=== PATIENT | female | born 1960 | race Caucasian/White ===

== ENCOUNTER 2020-10-29 11:00 | Outpatient (RCR) | payer MEDICARE, MEDICAID, SELFPAY ==
[2020-10-05 10:03] VITALS: BP 162/90; PULSE 140; TEMP 36.4; BMI 112.4
[2020-10-05 11:26] VITALS: BP 156/71
--- NOTE | 2020-10-05 13:20 | HP.PCM_ITS ---
(1) Leg swelling Status: Chronic Code(s): M79.89 - Other specified soft tissue disorders (2) Leg edema Status: Chronic Code(s): R60.0 - Localized edema (3) Dependent edema Status: Chronic Code(s): R60.9 - Edema, unspecified (4) Morbid obesity with BMI of 50.0-59.9, adult Status: Chronic Code(s): E66.01 - Morbid (severe) obesity due to excess calories; Z68.43 - Body mass index [BMI] 50.0-59.9, adult (5) Inactivity Status: Chronic Code(s): Z72.3 - Lack of physical exercise (6) Developmental disability Status: Chronic Code(s): F89 - Unspecified disorder of psychological dev elopment (7) Mentally disabled Status: Chronic Code(s): F79 - Unspecified intellectual disabilities (8) Bipolar disorder Status: Chronic Code(s): F31.9 - Bipolar disorder, unspecified (9) Hypertension Status: Chronic Code(s): I10 - Essential (primary) hypertension (10) Diabetes mellitus Status: Chronic Qualifiers: Diabetes mellitus type: type 2 Code(s): E11.9 - Type 2 diabetes mellitus without complications (11) Bilateral leg ulcer Status: Chronic Code(s): L97.919 - Non-pressure chronic ulcer of unspecified part of right lower leg with unspecified severity; L97.929 - Non-pressure chronic ulcer of unspecified part of left lower leg with unspecified severity (12) Chronic venous insufficiency Status: Chronic Code(s): I87.2 - Venous insufficiency (chronic) (peripheral) (13) Degenerative joint disease of knee Status: Chronic Qualifiers: Laterality: bilateral Code(s): M17.10 - Unilateral primary osteoarthritis, unspecified knee (14) GERD (gastroesophageal reflux disease) Status: Chronic Code(s): K21.9 - Gastro-esophageal reflux disease without esophagitis History of Present Illness Date of Service: 10/05/20 Chief Complaint: Bilateral lower extremity swelling, edema, and ulcerations. History of Wound: This is a 60-year-old female with mental disability. She is high functioning and communicative. She lives alone, though has aides who assist her on a daily basis. She was in her normal state of health until approximately 2 months ago. At that time, she began to claim that mice were in her bed while she slept at night. This concerned prompted her to begin sleeping in a recliner, and refusing to sleep in her bed. Furthermore, she is very inactive, spending the predominant portion of her day sitting idlly. Her inactivity is primarily due to degenerative joint disease in her knees. As result, she has developed severe swelling and edema in her lower extremities, as well as large blisters, many of which have ruptured spontaneously. The swelling and edema in the ulcerated blisters have become more severe, prompting the patient and her caregivers to seek medical attention. She presents today with red, swollen, edematous, weeping lower extremities. She has been evaluated by other physicians, as well as in the [facility] Emergency Department. She has been prescribed several different oral antibiotics, the courses of which have been completed. She was evaluated at [facility], where Unna boots were briefly utilized. Past Medical History Past Medical History: Chronic Problems Leg swelling (Chronic) Leg edema (Chronic) Dependent edema (Chronic) Morbid obesity with BMI of 50.0-59.9, adult (Chronic) Inactivity (Chronic) Developmental disability (Chronic) Mentally disabled (Chronic) Bipolar disorder (Chronic) Hypertension (Chronic) Diabetes mellitus (Chronic) Bilateral leg ulcer (Chronic) Chronic venous insufficiency (Chronic) Degenerative joint disease of knee (Chronic) GERD (gastroesophageal reflux disease) (Chronic) Past Medical History: The patient denies a history of myocardial infarction, congestive heart failure, cerebrovascular accident, renal disease, pulmonary disease, hyperlipidemia, and thrombophlebitis. She does have a history of morbid obesity, gastroesophageal reflux disease, degenerative joint disease of the knees, mental disability, bipolar disorder, hypertension, and diabetes mellitus. Surgical History: - - Patient has had tonsillectomy in the past. She is also undergone cholecystectomy. She has had bilateral total knee replacement surgery. Home Medications: Ambulatory Orders Medication Instructions Recorded Acidophilus 16 mg Capsule DAILY 10/05/20 Amitriptyline HCl 10/05/20 Buspar 30 mg PO BID 10/05/20 Cholestyramine Powder 1 packet PO BID 10/05/20 Lasix 20 mg PO DAILY 10/05/20 Melatonin 5 mg Tablet 5 mg PO QHS 10/05/20 Metoprolol Tartrate 50 mg BID 10/05/20 Neurontin 400 mg PO DAILY 10/05/20 Norvasc 5 mg PO DAILY 10/05/20 Norvasc 5 mg PO DAILY 10/05/20 Omeprazole 40 mg DAILY 10/05/20 Pepcid AC 20 mg BID 10/05/20 Provera 10 mg DAILY 10/05/20 Risperidone 2 ml PO BID 10/05/20 Valproic Acid 10 ml PO QHS 10/05/20 Vit D 1.25 mg QWEEK 10/05/20 Vitamin B12 100 mg PO DAILY 10/05/20 - Family History Paternal - - Patient's father at the age of 80 from a gunshot wound. The patient's mother in her 60s with a history of uterine cancer. Lives: Alone - Though has home aides. Smoking Status: Former smoker Tobacco Use: Non-smoker Alcohol: None Drugs: None Review of Systems Constitutional: Reports: - - The patient has high functioning mental disability.. Denies: Chills, Fever, Weight Change Eyes: Denies: Pain, Vision Change HEENT: Denies: Difficulty Hearing, Difficulty Swallowing, Sinus Congestion Cardiovascular: Denies: Chest Pain, Palpitations Respiratory: Denies: Cough, Shortness of Breath Gastrointestinal: Denies: Diarrhea, Nausea, Vomiting Genitourinary: Denies: Dysuria, Hematuria Endocrine: Denies: Heat/ Cold Intolerance, Polydipsia, Polyuria Hematologic/ Lymphatic: Denies: Easy Bruising, Easy Bleeding - Physical Exam Vital Signs Temp Pulse BP 97.6 F L 140 H 156/71 H 10/05/20 10:03 10/05/20 10:03 10/05/20 11:26 General: Alert, Oriented x3, Cooperative, No apparent distress, Well developed, Well nourished, - - The patient is mentally disabled, but high functioning. HEENT: Atraumatic, PERRLA, EOMI, Normocephalic Oral: Moist Mucosa Neck: No JVD Lungs: Normal air movement Abdomen: Non-Distended Extremities: No clubbing, No cyanosis, No Calf Tenderness, - - Severe swelling, edema, and erythema is noted in the lower extremities bilaterally. There are multiple large water blisters, some of which have spontaneously unroofed. Posterior tibial and dorsalis pedis pulses are easily audible by Doppler. Wound Measurements and Assessment WC - Nurse 1 - General Ulcer Measurement Start: 10/05/20 10:02 Freq: Status: Active Protocol: Activity Type Activity Date Activity User E-Sign Co-Sign Detail Recorded Client Recorded Date Recorded By Document 10/05/20 10:03 NEDRA [id number] 10/05/20 10:32 NEDRA 10/05/20 10:03 Wound Center Nurse 1 [Ulcer Assessment] #2 LLE Cluster -Current Size (cm) - Length 34 -Current Size (cm) - Width 29 -Current Size (cm) - Depth 0.1 -Total Square Cm 986 -Exudate Amt Large -Exudate Type Serosanguineous -Wound Margin Distinct, Outline Attached -Granulation Amt Medium (34-66%) -Granulation Quality Red -Necrosis Amt Medium (34-66%) -Necrotic Tissue Type Adherent Slough -Texture (Annmarie-wound Skin Appearance) Assessed, Scarring -Moisture (Annmarie-wound Skin Appearance Assessed, ) Maceration, Weeping -Color (Annmarie-wound Skin Appearance) No Abnormality, Assessed -Temperature (Annmarie-wound Skin No Abnormality Appearance) (Pt Warm) -Tenderness on Palpation (Annmarie-wound No Skin Appearance) -Ulcer Cleansing Rinsed/ Irrigated with Saline -Foul Odor after Cleansing No -Anesthetic Used 4% Lidocaine Solution,5% Lidocaine Gel #1 RLE Cluster -Current Size (cm) - Length 46 -Current Size (cm) - Width 29 -Current Size (cm) - Depth 0.1 -Total Square Cm 1334 -Exudate Amt Large -Exudate Type Serosanguineous -Wound Margin Distinct, Outline Attached -Granulation Amt Medium (34-66%) -Granulation Quality Red -Necrosis Amt Medium (34-66%) -Necrotic Tissue Type Adherent Slough -Texture (Annmarie-wound Skin Appearance) Assessed, Scarring -Moisture (Annmarie-wound Skin Appearance Assessed, ) Maceration, Weeping -Color (Annmarie-wound Skin Appearance) No Abnormality, Assessed -Temperature (Annmarie-wound Skin No Abnormality Appearance) (Pt Warm) -Tenderness on Palpation (Annmarie-wound No Skin Appearance) -Ulcer Cleansing Rinsed/ Irrigated with Saline -Foul Odor after Cleansing No -Anesthetic Used 4% Lidocaine Solution,5% Lidocaine Gel [Edema Assessment] -Right Calf (cm) 45 -Right Ankle (cm) 27 -Left Calf (cm) 45 -Left Ankle (cm) 26 WC - Nurse 3 - General Ulcer D/C NN Start: 10/05/20 10:02 Freq: Status: Active Protocol: Activity Type Activity Date Activity User E-Sign Co-Sign Detail Recorded Client Recorded Date Recorded By Document 10/05/20 11:26 NEDRA [id number] 10/05/20 11:30 KR 10/05/20 11:26 Wound Care Nurse 3 [Wound Dressing] #2 LLE Cluster -Ulcer Cleansing soap annd water -Primary Dressing Applied NonAdherent Contact Layer #1 RLE Cluster -Ulcer Cleansing soap and water -Primary Dressing Applied NonAdherent Contact Layer [Compression Applied] Right -Multi-Layered Wrap Application Multi-Layer Comp - Right ($ ) Left -Multi-Layered Wrap Application Multi-Layer Comp - Left ($) Vital Signs [Blood Pressure] -Blood Pressure (90/60-120/80) 156/71 H -Blood Pressure Mean (mm Hg) 99 -Source Monitor -Position Sitting -Blood Pressure Location Right Arm Pain Scale: 0-10 Numeric [Pain] -Is Patient Pain Free? Yes WC - Visit Discharge [Visit Discharge Information] -Discharge Condition Stable -Ambulatory Status Ambulatory,Cane -Transportation Private Auto -Accompanied by critical care unit nurse Neurological: Cranial nerves II-XII grossly intact, Neuro grossly intact Psych/Mental Status: Normal Affect, Appropriate, Alert and oriented to time, place, person, mood and affect Debridement Note Post-Debridement Measurements/Treatment WC - Nurse 3 - General Ulcer D/C NN Start: 10/05/20 10:02 Freq: Status: Active Protocol: Activity Type Activity Date Activity User E-Sign Co-Sign Detail Recorded Client Recorded Date Recorded By Document 10/05/20 11:26 NEDRA [id number] 10/05/20 11:30 KR 10/05/20 11:26 Wound Care Nurse 3 #2 LLE Cluster -Ulcer Cleansing soap annd water -Primary Dressing Applied NonAdherent Contact Layer #1 RLE Cluster -Ulcer Cleansing soap and water -Primary Dressing Applied NonAdherent Contact Layer Right -Multi-Layered Wrap Application Multi-Layer Comp - Right ($ ) Left -Multi-Layered Wrap Application Multi-Layer Comp - Left ($) Vital Signs Blood Pressure (90/60-120/80) 156/71 H Blood Pressure Mean (mm Hg) 99 Source Monitor Position Sitting Blood Pressure Location Right Arm Pain Scale: 0-10 Numeric Is Patient Pain Free? Yes WC - Visit Discharge Discharge Condition Stable Ambulatory Status Ambulatory,Cane Transportation Private Auto Accompanied by critical care unit nurse No debridement was completed today Assessment/Plan Active Problems Leg swelling (Chronic) Leg edema (Chronic) Dependent edema (Chronic) Morbid obesity with BMI of 50.0-59.9, adult (Chronic) Inactivity (Chronic) Developmental disability (Chronic) Mentally disabled (Chronic) Bipolar disorder (Chronic) Hypertension (Chronic) Diabetes mellitus (Chronic) Bilateral leg ulcer (Chronic) Chronic venous insufficiency (Chronic) Degenerative joint disease of knee (Chronic) GERD (gastroesophageal reflux disease) (Chronic) Assessment: This is a 60-year-old mentally disabled female who was in her normal state of health until approximately 2 months prior to her presentation. Two months ago, the patient began to spend her nights sitting in a recliner, rather than sleeping in a recumbent position in her bed. Furthermore, she is very inactive, sitting a great deal of each day. She has not active, due to degenerative changes in her knees. As result of her inactivity and chronic lower extremity dependency, she has developed severe swelling, edema, and superficial ulcerations in her lower extremities. She also has multiple medical problems, which are listed above. Plan: A lengthy discussion has been undertaken with the patient, and her aide, who is at the bedside. We have recommended that the patient return to the habit of sleeping in a recumbent position in bed each night. In this manner, her legs will be at heart level. Leg elevation, to heart level, or higher, has been recommended even during daytime hours. This is to be accomplished as much as possible each day. Prolonged, idle sitting has been strongly discouraged. Patient has been encouraged to be active. Weight loss has been recommended, though is unlikely to transpire in the short-term. With respect to weight, the patient has gained approximately 30 pounds just within the last several months, and has been encouraged to implement measures to lose weight. We are to implement compression to the lower extremities bilaterally, initially by means of a 3M 2 layer compression wrap which will be applied to each lower extremity. These wraps will be changed twice weekly. Patient will return in 2 weeks for reassessment. Ultimately, there may be a role for Unna boots. Long-term compression will also be recommended, likely by means of either graduated compression stockings or Velcro compression garments. To assist in the management of the patient's lower extremity swelling and edema, we are to attempt preauthorization for pneumatic mechanical compression pumps for the patient's lower extremities. Influenza vaccine was not administered today. The patient is not a smoker. She stands 5 feet 1 inches tall. She weighs 270 pounds. Her BMI is 51.0. Weight loss has been recommended. Total time: 55 minutes.
[2020-10-06 13:52] VITALS: BP 146/102; PULSE 117; RESP 20; TEMP 36.8; BMI 112.4
[2020-10-08 11:42] VITALS: BP 124/84; PULSE 74; RESP 16; TEMP 36.1; BMI 112.4
[2020-10-11 11:18] VITALS: BP 162/91; PULSE 92; RESP 16; TEMP 36.2; BMI 112.4
[2020-10-19 08:53] VITALS: BP 161/84; PULSE 99; TEMP 36.7; BMI 112.4
--- NOTE | 2020-10-19 09:17 | HP.PCM_ITS ---
(1) Leg swelling Status: Chronic Code(s): M79.89 - Other specified soft tissue disorders (2) Leg edema Status: Chronic Code(s): R60.0 - Localized edema (3) Dependent edema Status: Chronic Code(s): R60.9 - Edema, unspecified (4) Morbid obesity with BMI of 50.0-59.9, adult Status: Chronic Code(s): E66.01 - Morbid (severe) obesity due to excess calories; Z68.43 - Body mass index [BMI] 50.0-59.9, adult (5) Inactivity Status: Chronic Code(s): Z72.3 - Lack of physical exercise (6) Developmental disability Status: Chronic Code(s): F89 - Unspecified disorder of psychological dev elopment (7) Mentally disabled Status: Chronic Code(s): F79 - Unspecified intellectual disabilities (8) Bipolar disorder Status: Chronic Code(s): F31.9 - Bipolar disorder, unspecified (9) Hypertension Status: Chronic Code(s): I10 - Essential (primary) hypertension (10) Diabetes mellitus Status: Chronic Qualifiers: Diabetes mellitus type: type 2 Code(s): E11.9 - Type 2 diabetes mellitus without complications (11) Bilateral leg ulcer Status: Chronic Qualifiers: Non-pressure ulcer stage: limited to breakdown of skin Qualified Code(s): L97.911 - Non-pressure chronic ulcer of unspecified part of right lower leg limited to breakdown of skin; L97.921 - Non-pressure chronic ulcer of unspecified part of left lower leg limited to breakdown of skin Code(s): L97.919 - Non-pressure chronic ulcer of unspecified part of right lower leg with unspecified severity; L97.929 - Non-pressure chronic ulcer of unspecified part of left lower leg with unspecified severity (12) Chronic venous insufficiency Status: Chronic Code(s): I87.2 - Venous insufficiency (chronic) (peripheral) (13) Degenerative joint disease of knee Status: Chronic Qualifiers: Laterality: bilateral Code(s): M17.10 - Unilateral primary osteoarthritis, unspecified knee (14) GERD (gastroesophageal reflux disease) Status: Chronic Code(s): K21.9 - Gastro-esophageal reflux disease without esophagitis History of Present Illness Date of Service: 10/19/20 Chief Complaint: Bilateral lower extremity swelling, edema, and ulcerations. History of Wound: This is a 60-year-old female with mental disability. She is high functioning and communicative. She lives alone, though has aides who assist her on a daily basis. She was in her normal state of health until approximately 2 months prior to presentation. At that time, she began to claim that mice were in her bed while she slept at night. This concern prompted her to begin sleeping in a recliner, and refusing to sleep in her bed. Furthermore, she is very inactive, spending the predominant portion of her day sitting idlly. Her inactivity is primarily due to degenerative joint disease in her knees. As a result, she developed severe swelling and edema in her lower extremities, as well as large blisters, many of which ruptured spontaneously. The swelling and edema and the ulcerated blisters became more severe, prompting the patient and her caregivers to seek medical attention. She presented with red, swollen, edematous, weeping lower extremities. She had been evaluated by other physicians, as well as in the [facility] Emergency Department. She had been prescribed several different oral antibiotics, the courses of which had been completed. She was evaluated at [facility], where Unna boots were briefly utilized. Past Medical History Past Medical History: Chronic Problems Leg swelling (Chronic) Leg edema (Chronic) Dependent edema (Chronic) Morbid obesity with BMI of 50.0-59.9, adult (Chronic) Inactivity (Chronic) Developmental disability (Chronic) Mentally disabled (Chronic) Bipolar disorder (Chronic) Hypertension (Chronic) Diabetes mellitus (Chronic) Bilateral leg ulcer (Chronic) Chronic venous insufficiency (Chronic) Degenerative joint disease of knee (Chronic) GERD (gastroesophageal reflux disease) (Chronic) Surgical History: - - Patient has had tonsillectomy in the past. She is also undergone cholecystectomy. She has had bilateral total knee replacement surgery. Home Medications: Ambulatory Orders Medication Instructions Recorded Acidophilus 16 mg Capsule DAILY 10/05/20 Amitriptyline HCl 10/05/20 Buspar 30 mg PO BID 10/05/20 Cholestyramine Powder 1 packet PO BID 10/05/20 Lasix 20 mg PO DAILY 10/05/20 Melatonin 5 mg Tablet 5 mg PO QHS 10/05/20 Metoprolol Tartrate 50 mg BID 10/05/20 Neurontin 400 mg PO DAILY 10/05/20 Norvasc 5 mg PO DAILY 10/05/20 Norvasc 5 mg PO DAILY 10/05/20 Omeprazole 40 mg DAILY 10/05/20 Pepcid AC 20 mg BID 10/05/20 Provera 10 mg DAILY 10/05/20 Risperidone 2 ml PO BID 10/05/20 Valproic Acid 10 ml PO QHS 10/05/20 Vit D 1.25 mg QWEEK 10/05/20 Vitamin B12 100 mg PO DAILY 10/05/20 - Family History Paternal - - Patient's father at the age of 80 from a gunshot wound. The patient's mother in her 60s with a history of uterine cancer. Lives: Alone - Though has home aides. Smoking Status: Former smoker Tobacco Use: Non-smoker Alcohol: None Drugs: None Review of Systems Constitutional: Denies: Chills, Fever, Weight Change Eyes: Denies: Pain, Vision Change HEENT: Denies: Difficulty Hearing, Difficulty Swallowing, Sinus Congestion Cardiovascular: Denies: Chest Pain, Palpitations Respiratory: Denies: Cough, Shortness of Breath Gastrointestinal: Denies: Diarrhea, Nausea, Vomiting Genitourinary: Denies: Dysuria, Hematuria Endocrine: Denies: Heat/ Cold Intolerance, Polydipsia, Polyuria Hematologic/ Lymphatic: Denies: Easy Bruising, Easy Bleeding - Physical Exam Vital Signs Temp Pulse Resp BP 98.1 F 99 16 161/84 H 10/19/20 08:53 10/19/20 08:53 10/11/20 11:18 10/19/20 08:53 General: Alert, Oriented x3, Cooperative, No apparent distress, Well developed, Well nourished HEENT: Atraumatic, PERRLA, EOMI, Normocephalic Oral: Moist Mucosa Neck: No JVD Lungs: Normal air movement Abdomen: Non-Distended, Obese Extremities: No clubbing, No cyanosis, No edema, No Calf Tenderness, - - There has been marked improvement in the status of the patient's lower extremities. The swelling and edema is now essentially resolved. Addt'l Wound Findings: Right leg demonstrates mild inflammatory erythema. There are no open wounds or ulcerations. There is diffuse slough of epidermis. On the left, there are several very small and superficial ulcerations, which do not penetrate the dermis. Otherwise, there are no other significant open wounds or ulcerations. Wound Measurements and Assessment WC - Nurse 1 - General Ulcer Measurement Start: 10/05/20 10:02 Freq: Status: Active Protocol: Activity Type Activity Date Activity User E-Sign Co-Sign Detail Recorded Client Recorded Date Recorded By Document 10/19/20 08:53 NEDRA [id number] 10/19/20 09:01 NEDRA 10/19/20 08:53 Wound Center Nurse 1 [Ulcer Assessment] #4 Left Sanches Inferior -Current Size (cm) - Length 1 -Current Size (cm) - Width 1 -Current Size (cm) - Depth 0.1 -Total Square Cm 1 -Exudate Amt Small -Exudate Type Serosanguineous -Wound Margin Distinct, Outline Attached -Granulation Amt Large (67-100%) -Granulation Quality Red -Necrosis Amt None Present (0 %) -Texture (Annmarie-wound Skin Appearance) Assessed, Scarring -Moisture (Annmarie-wound Skin Appearance No Abnormality, ) Assessed -Color (Annmarie-wound Skin Appearance) No Abnormality, Assessed -Temperature (Annmarie-wound Skin No Abnormality Appearance) (Pt Warm) -Tenderness on Palpation (Annmarie-wound No Skin Appearance) -Ulcer Cleansing soap and water -Foul Odor after Cleansing No -Anesthetic Used 4% Lidocaine Solution #3 Left Sanches Superior -Current Size (cm) - Length 0.7 -Current Size (cm) - Width 1.0 -Current Size (cm) - Depth 0.1 -Total Square Cm 0.70 -Exudate Amt Small -Exudate Type Serosanguineous -Wound Margin Distinct, Outline Attached -Granulation Amt Large (67-100%) -Granulation Quality Red -Necrosis Amt None Present (0 %) -Texture (Annmarie-wound Skin Appearance) Assessed, Scarring -Moisture (Annmarie-wound Skin Appearance No Abnormality, ) Assessed -Color (Annmarie-wound Skin Appearance) No Abnormality, Assessed -Temperature (Annmarie-wound Skin No Abnormality Appearance) (Pt Warm) -Tenderness on Palpation (Annmarie-wound No Skin Appearance) -Ulcer Cleansing Rinsed/ Irrigated with Saline -Foul Odor after Cleansing No -Anesthetic Used 4% Lidocaine Solution #1 RLE Cluster -Current Size (cm) - Length 0.1 -Current Size (cm) - Width 0.1 -Current Size (cm) - Depth 0.1 -Total Square Cm 0.01 -Wound Margin Distinct, Outline Attached -Texture (Annmarie-wound Skin Appearance) Assessed, Scarring -Moisture (Annmarie-wound Skin Appearance Assessed,Dry/ ) Scaly -Color (Annmarie-wound Skin Appearance) No Abnormality, Assessed -Temperature (Annmarie-wound Skin No Abnormality Appearance) (Pt Warm) -Tenderness on Palpation (Annmarie-wound No Skin Appearance) -Ulcer Cleansing soap and water -Foul Odor after Cleansing No -Anesthetic Used 4% Lidocaine Solution Musculoskeletal: No Muscle Wasting Neurological: Cranial nerves II-XII grossly intact, Neuro grossly intact Psych/Mental Status: Normal Affect, Appropriate, Alert and oriented to time, place, person, mood and affect Debridement Note Post-Debridement Measurements/Treatment WC - Nurse 2 - General Ulcer CM Notes Start: 10/05/20 10:02 Freq: Status: Active Protocol: Activity Type Activity Date Activity User E-Sign Co-Sign Detail Recorded Client Recorded Date Recorded By Document 10/05/20 16:07 PL [id number] 10/05/20 16:08 PL 10/05/20 16:07 Wound Center Nurse 2 #2 LLE Cluster -Procedure Performed No -Wound/Ulcer Outcome Not Healed #1 RLE Cluster -Procedure Performed No -Wound/Ulcer Outcome Not Healed Pain Scale: 0-10 Numeric Is Patient Pain Free? Yes WC - Nurse 3 - General Ulcer D/C NN Start: 10/05/20 10:02 Freq: Status: Active Protocol: Activity Type Activity Date Activity User E-Sign Co-Sign Detail Recorded Client Recorded Date Recorded By Document 10/05/20 11:26 KR [id number] 10/05/20 11:30 KR Document 10/06/20 13:59 DL [id number] 10/06/20 14:02 DL Document 10/08/20 11:42 MS [id number] 10/08/20 11:44 MS Document 10/11/20 11:18 BMF [id number] 10/11/20 11:21 BMF 10/05/20 10/06/20 10/08/20 11:26 13:59 11:42 Wound Care Nurse 3 #2 LLE Cluster -Ulcer Cleansing soap annd water Wound Cleanser -Foul Odor after Cleansing No -Primary Dressing Applied NonAdherent NonAdherent Contact Layer Contact Layer -Other Dressing ABD -Primary Dressing Covered/Secured with Dry Gauze & Roll Gauze, Secured with Tape -Other Covering #1 RLE Cluster -Ulcer Cleansing soap and water Wound Cleanser -Foul Odor after Cleansing No -Primary Dressing Applied NonAdherent NonAdherent Contact Layer Contact Layer -Other Dressing ABD -Primary Dressing Covered/Secured with Dry Gauze & Roll Gauze, Secured with Tape -Other Covering BILATERAL -Multi-Layered Wrap Application Right -Multi-Layered Wrap Application Multi-Layer Multi-Layer Multi-Layer Comp - Right ($ Comp - Bilat ($ Comp - Bilat ($ ) ) ) Left -Multi-Layered Wrap Application Multi-Layer Comp - Left ($) Treatment Response Procedure Tolerated Well Temperature (97.8 F-99.1 F) 96.9 F L Temperature Source Temporal Pulse Rate (60-100) 74 Pulse Location Monitor Respiratory Rate (12-18) 16 Respiratory rate source Observation Oxygen Delivery Method Vital Signs Blood Pressure (90/60-120/80) 156/71 H 124/84 H Blood Pressure Mean (mm Hg) 99 97 Source Monitor Monitor Position Sitting Sitting Blood Pressure Location Right Arm Left Arm Pain Scale: 0-10 Numeric Is Patient Pain Free? Yes Yes Yes WC - Visit Discharge Discharge Condition Stable Stable Stable Ambulatory Status Ambulatory,Cane Ambulatory Ambulatory,Cane Transportation Private Auto Private Auto Accompanied by nurse behavioral health care Medication Reconcilliation completed & No provided to patient/care provider Clinical Summary of Care Provided Yes 10/11/20 11:18 Wound Care Nurse 3 #2 LLE Cluster -Ulcer Cleansing SOAPY WATER -Foul Odor after Cleansing -Primary Dressing Applied -Other Dressing -Primary Dressing Covered/Secured with Secured with Tape,Other -Other Covering ABD KERLIX #1 RLE Cluster -Ulcer Cleansing SOAPY WATER -Foul Odor after Cleansing -Primary Dressing Applied -Other Dressing -Primary Dressing Covered/Secured with Other -Other Covering ABD, KERLIX BILATERAL -Multi-Layered Wrap Application Multi-Layer Comp - Bilat ($ ) Right -Multi-Layered Wrap Application Left -Multi-Layered Wrap Application Treatment Response Procedure Tolerated Well Temperature (97.8 F-99.1 F) 97.1 F L Temperature Source Temporal Pulse Rate (60-100) 92 Pulse Location Monitor Respiratory Rate (12-18) 16 Respiratory rate source Observation Oxygen Delivery Method Room Air Vital Signs Blood Pressure (90/60-120/80) 162/91 H Blood Pressure Mean (mm Hg) 114 Source Monitor Position Sitting Blood Pressure Location Right Arm Pain Scale: 0-10 Numeric Is Patient Pain Free? Yes WC - Visit Discharge Discharge Condition Stable Ambulatory Status Ambulatory Transportation Private Auto Accompanied by Medication Reconcilliation completed & provided to patient/care provider Clinical Summary of Care Provided No debridement was completed today Assessment/Plan Active Problems Leg swelling (Chronic) Leg edema (Chronic) Dependent edema (Chronic) Morbid obesity with BMI of 50.0-59.9, adult (Chronic) Inactivity (Chronic) Developmental disability (Chronic) Mentally disabled (Chronic) Bipolar disorder (Chronic) Hypertension (Chronic) Diabetes mellitus (Chronic) Bilateral leg ulcer (Chronic) Chronic venous insufficiency (Chronic) Degenerative joint disease of knee (Chronic) GERD (gastroesophageal reflux disease) (Chronic) Assessment: This is a 60-year-old mentally disabled female who was in her normal state of health until approximately 2 months prior to her presentation. Two months prior to presentation, the patient began to spend her nights sitting in a recliner, rather than sleeping in a recumbent position in her bed. Furthermore, she is very inactive, sitting a great deal of each day. She is not active, due to degenerative changes in her knees. As result of her inactivity and chronic lower extremity dependency, she has developed severe swelling, edema, and superficial ulcerations in her lower extremities. She also has multiple medical problems, which are listed above. Since the patient's prior visit, there has been marked improvement in the swelling and edema in her lower extremities. Plan: A lengthy discussion has been undertaken with the patient, and her aide, who is at the bedside. We have recommended that the patient return to the habit of sleeping in a recumbent position in bed each night. In this manner, her legs will be at heart level. Leg elevation, to heart level, or higher, has been recommended even during daytime hours. This is to be accomplished as much as possible each day. Prolonged, idle sitting has been strongly discouraged. Pa elizabeth has been encouraged to be active. Weight loss has been recommended, though is unlikely to transpire in the short-term. With respect to weight, the patient has gained approximately 30 pounds just within the last several months, and has been encouraged to implement measures to lose weight. We are to continue compression to the lower extremities bilaterally, by means of a 3M 2 layer compression wrap which will be applied to each lower extremity. These wraps will be changed twice weekly. Patient will return in 2 weeks for reassessment. The patient has responded well to this management thus far. Long-term compression will also be recommended, likely by means of either graduated compression stockings or Velcro compression garments. To assist in the management of the patient's lower extremity swelling and edema, we are to attempt preauthorization for pneumatic mechanical compression pumps for the patient's lower extremities. Influenza vaccine was not administered today. The patient is not a smoker. She stands 5 feet 1 inches tall. She weighs 270 pounds. Her BMI is 51.0. Weight loss has been recommended. Total time: 28 minutes.
[2020-10-19 09:23] VITALS: BP 155/74
[2020-10-22 12:01] VITALS: BP 167/87; PULSE 91; RESP 18; TEMP 36.8; BMI 112.4
[2020-10-25 11:30] VITALS: BP 148/107; PULSE 84; RESP 16; TEMP 36.6; BMI 112.4
[2020-10-29 11:34] VITALS: BP 148/87; PULSE 116; RESP 16; TEMP 36; BMI 112.4
== END 2020-10-29 23:59 ==
LOC: WC 11:00
PROVIDERS: PCP Physician Assistant Medical; Visit Provider Surgery
DX: E11.622 Type 2 diabetes mellitus with other skin ulcer (principal); I87.2 Venous insufficiency (chronic) (peripheral); I10 Essential (primary) hypertension; K21.9 Gastro-esophageal reflux disease without esophagitis; M79.89 Other specified soft tissue disorders; R60.0 Localized edema; E66.01 Morbid (severe) obesity due to excess calories; Z68.43 Body mass index [BMI] 50.0-59.9, adult; Z72.3 Lack of physical exercise; M17.10 Unilateral primary osteoarthritis, unspecified knee; Z79.899 Other long term (current) drug therapy; F31.9 Bipolar disorder, unspecified; Z87.891 Personal history of nicotine dependence; L97.911 Non-pressure chronic ulcer of unspecified part of right lower leg limited to breakdown of skin; L97.921 Non-pressure chronic ulcer of unspecified part of left lower leg limited to breakdown of skin
CPT/HCPCS: 29581; 99213; G0463

== ENCOUNTER 2020-11-02 08:30 | Outpatient (RCR) | payer MEDICARE, MEDICAID, SELFPAY ==
[2020-10-30 00:15] VITALS: BP 148/87; PULSE 116; RESP 16; TEMP 36
[2020-11-02 08:39] VITALS: BP 162/89; PULSE 99; RESP 18; TEMP 37.2; BMI 112.4
--- NOTE | 2020-11-02 13:51 | PCM.WC.HP ---
History of Present Illness Date of Service: 11/02/20 Chief Complaint: Bilateral lower extremity swelling, edema, and ulcerations. History of Wound: This is a 60-year-old female with mental disability. She is high functioning and communicative. She lives alone, though has aides who assist her on a daily basis. She was in her normal state of health until approximately 2 months prior to presentation. At that time, she began to claim that mice were in her bed while she slept at night. This concern prompted her to begin sleeping in a recliner, and refusing to sleep in her bed. Furthermore, she is very inactive, spending the predominant portion of her day sitting idlly. Her inactivity is primarily due to degenerative joint disease in her knees. As a result, she developed severe swelling and edema in her lower extremities, as well as large blisters, many of which ruptured spontaneously. The swelling and edema and the ulcerated blisters became more severe, prompting the patient and her caregivers to seek medical attention. She presented with red, swollen, edematous, weeping lower extremities. She had been evaluated by other physicians, as well as in the [facility] Emergency Department. She had been prescribed several different oral antibiotics, the courses of which had been completed. She was evaluated at [facility], where Unna boots were briefly utilized. [facility] Home Medications Acidophilus 16 mg Capsule DAILY 10/05/20 [History Last Taken Unknown] Amitriptyline HCl 10/05/20 [History Last Taken Unknown] Buspar 30 mg PO BID 10/05/20 [History Last Taken Unknown] Cholestyramine Powder 1 packet PO BID 10/05/20 [History Last Taken Unknown] Lasix 20 mg PO DAILY 10/05/20 [History Last Taken Unknown] Melatonin 5 mg Tablet 5 mg PO QHS 10/05/20 [History Last Taken Unknown] Metoprolol Tartrate 50 mg BID 10/05/20 [History Last Taken Unknown] Neurontin 400 mg PO DAILY 10/05/20 [History Last Taken Unknown] Norvasc 5 mg PO DAILY 10/05/20 [History Last Taken Unknown] Norvasc 5 mg PO DAILY 10/05/20 [History Last Taken Unknown] Omeprazole 40 mg DAILY 10/05/20 [History Last Taken Unknown] Pepcid AC 20 mg BID 10/05/20 [History Last Taken Unknown] Provera 10 mg DAILY 10/05/20 [History Last Taken Unknown] Risperidone 2 ml PO BID 10/05/20 [History Last Taken Unknown] Valproic Acid 10 ml PO QHS 10/05/20 [History Last Taken Unknown] Vit D 1.25 mg QWEEK 10/05/20 [History Last Taken Unknown] Vitamin B12 100 mg PO DAILY 10/05/20 [History Last Taken Unknown] Social History Smoking Status: Former smoker ROS Constitutional Constitutional: Denies anorexia, change in weight, chills, fever(s), malaise or night sweats Eyes Eyes: Denies change in vision, double vision or eye pain ENT HEENT: Denies dysphagia, epistaxis, headache(s), hearing loss, sinus pain, sinus pressure or sore throat Cardiovascular Cardiovascular: Denies chest pain or palpitations Respiratory/Chest Respiratory/Chest: Reports hemoptysis; Denies pain on inspiration, shortness of breath at rest or wheezing Gastrointestinal Gastrointestinal: Denies abdominal pain, hematemesis, hematochezia or nausea Genitourinary Genitourinary: Denies dysuria or hematuria Musculoskeletal Musculoskeletal: Denies loss of height Neurologic Neurologic: Denies headache(s), loss of vision or seizures Endocrine Endocrinology: Denies polyuria Vital Signs Vital Signs Vital Signs: 11/02/20 08:39 Temperature 98.9 F Temperature Source Temporal Pulse Rate 99 Respiratory Rate 18 Blood Pressure 162/89 H Blood Pressure Mean 113 Blood Pressure Source Monitor Blood Pressure Position Sitting Blood Pressure Location Left Arm Oxygen Delivery Method Room Air Physical Exam Const alert, oriented x3, no apparent distress and well nourished General Appearance: cooperative and well developed HEENT normocephalic, EAC's normal and moist oral mucous membranes Head and Scalp: atraumatic Eyes PERRL and EOMs intact bilaterally General Eye: normal appearance of both eyes Pupil: PERRL Neck supple and no JVD General: trachea midline Resp normal respiratory effort and no use of accessory muscles Effort and Inspection: able to speak in complete sentences GI normal to inspection, nondistended, normoactive bowel sounds and non-distended Extremity no calf tenderness Extremity Narrative: There is no significant swelling or edema in the patient's lower extremities. There are no open wounds or ulcerations. General Extremity: Negative for clubbing or cyanosis Skin Wound Narrative: No open wounds or ulcerations are noted in the patient's lower extremities. Neuro oriented x3, CN's II-XII intact bilaterally and moves all extremities Neuro Narrative: The patient is noted to suffer from a mild mental disability. Psych Appearance: grossly normal and appropriate Attitude: calm Debridement Note Debridement Note No debridement was completed: No debridement was completed today (There are no open wounds or ulcerations.) Assessment & Plan Assessment/Plan (1) Leg swelling: Status: Chronic Code(s): M79.89 - Other specified soft tissue disorders (2) Leg edema: Status: Chronic Code(s): R60.0 - Localized edema (3) Dependent edema: Status: Chronic Code(s): R60.9 - Edema, unspecified (4) Morbid obesity with BMI of 50.0-59.9, adult: Status: Chronic Code(s): E66.01 - Morbid (severe) obesity due to excess calories; Z68.43 - Body mass index [BMI] 50.0-59.9, adult (5) Inactivity: Status: Chronic Code(s): Z72.3 - Lack of physical exercise (6) Developmental disability: Status: Chronic Code(s): F89 - Unspecified disorder of psychological development (7) Mentally disabled: Status: Chronic Code(s): F79 - Unspecified intellectual disabilities (8) Bipolar disorder: Status: Chronic Code(s): F31.9 - Bipolar disorder, unspecified (9) Hypertension: Status: Chronic Code(s): I10 - Essential (primary) hypertension (10) Diabetes mellitus: Status: Chronic Code(s): E11.9 - Type 2 diabetes mellitus without complications Qualifiers: Diabetes mellitus type: type 2 (11) Bilateral leg ulcer: Status: Chronic Code(s): L97.919 - Non-pressure chronic ulcer of unspecified part of right lower leg with unspecified severity; L97.929 - Non-pressure chronic ulcer of unspecified part of left lower leg with unspecified severity Qualifiers: Non-pressure ulcer stage: limited to breakdown of skin Qualified Code(s): L97.911 - Non-pressure chronic ulcer of unspecified part of right lower leg limited to breakdown of skin; L97.921 - Non-pressure chronic ulcer of unspecified part of left lower leg limited to breakdown of skin (12) Chronic venous insufficiency: Status: Chronic Code(s): I87.2 - Venous insufficiency (chronic) (peripheral) (13) Degenerative joint disease of knee: Status: Chronic Code(s): M17.10 - Unilateral primary osteoarthritis, unspecified knee Qualifiers: Laterality: bilateral (14) GERD (gastroesophageal reflux disease): Status: Chronic Code(s): K21.9 - Gastro-esophageal reflux disease without esophagitis Plan: The patient has done well in recent weeks. The swelling and edema in her lower extremities, and the superficial ulcerations, have resolved. There are currently no open wounds or ulcerations, and no significant swelling or edema in either lower extremity. The patient is to be discharged, and will follow-up henceforth on an as-needed basis. She is to continue with the currently implemented conservative treatment measures, which include leg elevation, weight loss of prolonged idle sitting, activity as tolerated, etc. A prescription has been provided for graduated compression stockings of 20 to 30 mmHg compression, knee-high length. Circumference measurements of the calf and ankle have been determined and documented today, and the patient is to obtain the stockings within the next several days. She is discharged today with a 3M 2 layer compression wrap to each lower extremity, which is to remain in place until which time the patient is able to obtain the graduated compression stockings. The stockings are to be worn on a daily basis. The recent implementation of a new electronic medical record system may result in errors, omissions, or inaccuracies in this document. Total time: 26 minutes.
== END 2020-11-02 09:11 | disposition home or self-care (01) ==
LOC: WC 08:30
PROVIDERS: PCP Physician Assistant Medical; Visit Provider Surgery
DX: E11.622 Type 2 diabetes mellitus with other skin ulcer (principal); L97.911 Non-pressure chronic ulcer of unspecified part of right lower leg limited to breakdown of skin; L97.921 Non-pressure chronic ulcer of unspecified part of left lower leg limited to breakdown of skin; R60.0 Localized edema; M79.89 Other specified soft tissue disorders; M17.0 Bilateral primary osteoarthritis of knee; Z79.899 Other long term (current) drug therapy; Z87.891 Personal history of nicotine dependence; E66.01 Morbid (severe) obesity due to excess calories; Z68.43 Body mass index [BMI] 50.0-59.9, adult; I10 Essential (primary) hypertension; K21.9 Gastro-esophageal reflux disease without esophagitis; I87.2 Venous insufficiency (chronic) (peripheral)
CPT/HCPCS: 29581; 99213; G0463

== ENCOUNTER 2020-12-24 08:48 | Outpatient (RCR) | payer MEDICARE, MEDICAID, SELFPAY | END 2020-12-29 23:59 | LOC: WC 08:48 | PROVIDERS: PCP Physician Assistant Medical; Visit Provider Family Medicine | DX: Z09 Encounter for follow-up examination after completed treatment for conditions other than malignant neoplasm (principal) ==